=== PATIENT | male | born 1995 | race Caucasian/White ===

== ENCOUNTER 2016-11-07 05:06 | Inpatient (IN) | payer MEDICAID ==
[2016-11-07] VITALS (39 sets, daily range): BP systolic 86–134; BP diastolic 51–92
[~2016-11-07] VITALS: Ht 182.9 cm; Wt 105.7 kg
[~2016-11-07 05:06] MED LIST: CEPH-569 PO; HYDR1TAB PO; NO MEDS
--- NOTE | 2016-11-07 05:06 | NUR ---
TO BED 3 BIB PARAMEDICS C/O ALTERED, POSSIBLE OVERDOSE. PT WAS GIVEN NARCAN 4MG IVP BY EMS AIRDOX FITTER. RECEIVED PT SOMNOLENT, AROUSABLE TO PAINFUL STIMULI. RHONCHI HEARD BILATERALLY ON AUSCULTATION. PLACE PT ON CARDIAC MONITORING, CONTINUOUS POX, O2@15L/NONREBREATHER MASK. PT ADMITS TO TAKING 1 TAB OF XANAX. DANI MD AT BEDSIDE TO GIOVANNA PT.
--- NOTE | 2016-11-07 05:18 | NUR ---
DANI RUTH AT BEDSIDE TO RE-EVAL PT.
[2016-11-07 05:41] LABS: BASOPHILS # (AUTO) 0.1 /CMM (0.0-0.2); BASOPHILS % (AUTO) 0.4 % (0.0-2.0); EOSINOPHILS # (AUTO) 0.2 /CMM (0.0-0.7); EOSINOPHILS % (AUTO) 1.1 % (0.0-6.0); HEMATOCRIT 49 % (39-51); HEMOGLOBIN 16.2 g/dL (13.5-17.5); LYMPHOCYTES # (AUTO) 2.7 /CMM (0.8-4.8); LYMPHOCYTES % (AUTO) 19.1 % (20.0-44.0); MEAN CORPUSCULAR HEMOGLOBIN 30 PG (26.0-33.0); MEAN CORPUSCULAR HGB CONC 33 g/dl (31.0-36.0); MEAN CORPUSCULAR VOLUME 90 fL (80-96); MONOCYTES # (AUTO) 0.6 /CMM (0.1-1.30); MONOCYTES % (AUTO) 3.8 % (2.0-12.0); NEUTROPHILS # (AUTO) 10.9 /CMM (1.8-8.9); NEUTROPHILS % (AUTO) 75.6 % (43.0-81.0); PLATELET COUNT (AUTO) 223 /CMM (150-450); RDW COEFFICIENT OF VARIATION 12.5 (11.5-15.0); RED BLOOD CELL COUNT(AUTO) 5.39 MIL/uL (4.5-6.0); WHITE BLOOD COUNT (AUTO) 14.4 K/uL (4.3-11.0)
--- NOTE | 2016-11-07 05:42 | NUR ---
PT O2 SAT 88% ON NONREBREATHER MASK. ER MADE AWARE.
--- NOTE | 2016-11-07 05:47 | NUR ---
PT RESP RATE AT 40/MIN ER MD MADE AWARE. ER MD AT BEDSIDE TO RE-EVAL PT WITH ORDERS RECEIVED. RT PAGED PER ER MD ORDER.
[2016-11-07 06:18] LABS: INR 0.97 (0.87-1.13); PROTHROMBIN TIME 10.4 SECS (9.5-12.7)
[2016-11-07 06:19] LABS: CALCIUM, SERUM 8.1 mg/dL (8.5-10.1); CREATININE 1.2 mg/dL (0.6-1.3); POTASSIUM 4.2 mmol/L (3.5-5.1)
--- NOTE | 2016-11-07 06:20 | NUR ---
NOW PT RESP RATE 48-52/MIN, ER MD AWARE WITH ORDERS TO PREP PT FOR INTUBATION. RT AT BEDSIDE.
[2016-11-07 06:21] LABS: ALBUMIN 3.9 g/dL (3.4-5.0); BILIRUBIN,DIRECT 0.1 mg/dL (0.0-0.2); BILIRUBIN,TOTAL 0.3 mg/dL (0.2-1.0); TOTAL PROTEIN, SERUM 7.4 g/dL (6.4-8.2)
[2016-11-07 06:25] LABS: SALICYLATE 1.2 mg/dL (2.8-20.0)
--- NOTE | 2016-11-07 06:29 | NUR ---
RT PLACE PT ON VENT, AC-20, TV-500, FIO2-90%, PEEP-5.
--- NOTE | 2016-11-07 06:29 | NUR ---
PT INTUBATED BY ER WITH ET-TUBE 8.0, 24CM AT THE LIP LINE, (+) COLOR CHANGE ON THE CO2 DETECTOR WITH BILATERAL EQUAL BREATH SOUNDS.
--- NOTE | 2016-11-07 06:30 | NUR ---
ETT PULLED BACK 1 CM. ETT 23 @ THE LIP.
--- NOTE | 2016-11-07 06:30 | NUR ---
PT REC'D ON NRB 15L. RESP DISTRESS AND SOB NOTED. PT INTUBATED ETT SIZE 8, 24 @ THE LIP. CLEAR BILATERAL B/S NOTED. PT PLACED ON [facility] VENT ON NOTED SETTINGS PER DR DUEÑAS. DINING ROOM SERVER CUFF PRESSURE NOTED. VENT PLUGGED INTO RED OUTLET. ALARMS ARE SET AND AUDIBLE. AMBU BAG BEDSIDE WILL CONTINUE TO MONITOR. Addendum: 11/07/16 at 0700 by AMAURY SHAW RT Amended: Links added.
--- NOTE | 2016-11-07 06:37 | NUR ---
POST INTUBATION CXR DONE.
--- NOTE | 2016-11-07 06:53 | NUR ---
PT ASSIGNED TO ICU 257
--- NOTE | 2016-11-07 07:11 | NUR ---
REPORT GIVEN TO ALBINO MONTGOMERY.
[2016-11-07 07:32] LABS: TROPONIN I 0.037 ng/mL (0.00-0.056)
--- NOTE | 2016-11-07 07:38 | NUR ---
REPORT CALLED TO CABLE OPERATORNICHOLAS SONG. WILL TRANSPORT PT VIA ACLS PROTOCOL.
--- NOTE | 2016-11-07 07:54 | NUR ---
PATIENT TRANSFERRED TO ICU VIA ACLS PROTOCOL, WITH EMT, RN, AND RT. DUNCAN PETERSON TO PROVIDE YURIY.
--- NOTE | 2016-11-07 08:00 | NUR ---
SPAR MACHINE OPERATOR HELPER; ADMIT RECEIVED PT VENTED VIA ETT, VIA GURNEY FROM ER WITH ACLS. PT TRANSFER TO ICU BED PLACED ON VENTILATOR AND MANAGEMENT EXPERT. MANAGEMENT EXPERT SHOWING SINUS TACHYCARDIA. NOTED LARGE AMOUNT OF BRIGHT RED FROTHY SPUTUM COMING OUT OF ETT. ORAL CARE AND SUCTIONING DONE. PT ON DIPRIVAN DRIP AT 35MCG/KG/MIN STARTED IN ER. PT APPEARS TO BE AWAKE AND REACHING FOR ETT WILL INCREASE SEDATION FOR PT SAFETY. DOMINGO SOFT WRIST RESTRAINS ON. ORDERED. SULLIVAN CATH INTACT DRAINING TO GRAVITY CLEAR YELLOW URINE. NG TUBE TO RIGHT NARE INTACT POSITIVE FOR AUSCULTATION AND ASPIRATION. WILL REVIEW ORDERS.
[2016-11-07 08:08] LABS: APPEARANCE,URINE CLEAR (CLEAR); BILIRUBIN,URINE NEGATIVE (NEGATIVE); BLOOD, URINE NEGATIVE Ery/uL (NEGATIVE); COLOR,URINE YELLOW (YELLOW); KETONES,URINE NEGATIVE (NEGATIVE); LEUKOCYTE ESTERASE ,URINE NEGATIVE (NEGATIVE); NITRITE, URINE NEGATIVE (NEGATIVE); PROTEIN,URINE NEGATIVE (NEGATIVE); UGLUCOSE NEGATIVE (NEGATIVE); UROBILINOGEN,URINE 0.2 EU/dL (0.2)
[2016-11-07 08:38] LABS: ABG BASE EXCESS -2.7 mmol/L; ABG OXYGEN SATURATION 97.9 % (92.0-98.5); ABG PH 7.387 (7.350-7.450); ABG PO2 114.2 mmHg (75.0-100.0); AaDO2 489.6 mmHg; COHb 0.5 % (0.5-1.5); MetHb 0.9 % (0.0-1.5); O2Hb 96.5 % (94.0-97.0); SITE, ABG Right Radial; VENT MODE, BG AC 20 500 90% +5
--- NOTE | 2016-11-07 10:30 | NUR ---
SOLE LEVELING MACHINE OPERATOR; PRIMARY DR. CECELIA MADRID AT BEDSIDE UPDATE WAS GIVEN. DISCUSSED REGARDING LOW GRADE FEVERS AND LOW B/P. NEW ORDERS GIVEN.
--- NOTE | 2016-11-07 19:30 | NUR ---
ELECTRICAL AUTOMATION ENGINEER RCD PT W/ DX OD; PT SEDATED ON DIPRIVAN AT 40 MCG/KG/MIN FOR PT SAFETY BL SOFT WRSIT RESTRAINTS IN PLACE; PT NOTED TO WAKE UP DURING ADLS. NSR/ST ON MONITOR. INTUBATED 8.0 @ 23 W/VENT SETTINGS AC 20 500 65% 5. ALBERTO PICC PATENT AND W/GOOD BLOOD RETURN. HOB ELEVATED. BED LOCKED AND IN LOW POSITION.
[2016-11-08] VITALS (59 sets, daily range): BP systolic 103–137; BP diastolic 53–98
--- NOTE | 2016-11-08 00:35 | NUR ---
MACHINE SPECIALIST TEMP 100; TYLENOL GIVEN AND INITIATED COOLING MEASURES. CONTINUE TO MONITOR.
[2016-11-08 04:45] LABS: BASOPHILS # (AUTO) 0.1 /CMM (0.0-0.2); BASOPHILS % (AUTO) 0.9 % (0.0-2.0); EOSINOPHILS # (AUTO) 0.2 /CMM (0.0-0.7); EOSINOPHILS % (AUTO) 1.9 % (0.0-6.0); HEMATOCRIT 42 % (39-51); HEMOGLOBIN 14.7 g/dL (13.5-17.5); LYMPHOCYTES # (AUTO) 1.6 /CMM (0.8-4.8); LYMPHOCYTES % (AUTO) 13.7 % (20.0-44.0); MEAN CORPUSCULAR HEMOGLOBIN 31 PG (26.0-33.0); MEAN CORPUSCULAR HGB CONC 35 g/dl (31.0-36.0); MEAN CORPUSCULAR VOLUME 90 fL (80-96); MONOCYTES # (AUTO) 0.9 /CMM (0.1-1.30); MONOCYTES % (AUTO) 8.1 % (2.0-12.0); NEUTROPHILS # (AUTO) 8.8 /CMM (1.8-8.9); NEUTROPHILS % (AUTO) 75.4 % (43.0-81.0); PLATELET COUNT (AUTO) 153 /CMM (150-450); RDW COEFFICIENT OF VARIATION 12.4 (11.5-15.0); WHITE BLOOD COUNT (AUTO) 11.6 K/uL (4.3-11.0)
[2016-11-08 05:11] LABS: CHOLESTEROL 133 mg/dL (<200); HDL CHOLESTEROL 36 mg/dL (40-60); LDL 63 mg/dL (0-99); THYROID STIMULATING HORMONE 0.869 uIU/mL (0.358-3.74); TRIGLYCERIDES 810 mg/dL (30-150)
[2016-11-08 05:13] LABS: B-TYPE NATRIURETIC PEPTIDE 91 PG/ML (0-125); CALCIUM, SERUM 7.8 mg/dL (8.5-10.1); CARBON DIOXIDE 30 mmol/L (21-32); CHLORIDE 105 mmol/L (98-107); GLUCOSE 110 mg/dL (74-106); PHOSPHORUS 3.2 mg/dL (2.5-4.9); POTASSIUM 3.6 mmol/L (3.5-5.1); SODIUM SERUM 140 mmol/L (136-145); UREA NITROGEN, BLOOD 7 mg/dL (7-18)
[2016-11-08 05:21] LABS: TROPONIN I < 0.017 ng/mL (0.00-0.056)
--- NOTE | 2016-11-08 06:45 | NUR ---
WET END OPERATOR PT REMAINED ON DIPRIVAN AT 40 MCG/KG/MIN AND BL SOFT WRIST RESTRAINTS PT EASILY WAKES UP DURING ADLS. RESTRAINTS WILL REMAIN ON FOR PT SAFETY. CONTINUE TO MONITOR.
--- NOTE | 2016-11-08 08:00 | NUR ---
HYDROTECHNICAL SPECIALIST; ASSESSMENT RECEIVED PT VENTED VIA ETT. SEE FLOW SHEET FOR VET SETTINGS. PT SEDATED ON DIPRIVAN DRIP AT 40MCG/KG/MIN INFUSING INTO RIGHT UPPER ARM PICC LINE. NG TUBE TO RIGHT NARE INTACT POSITIVE FOR AUSCULTATION AND ASPIRATION. SULLIVAN CATH INTACT DRAINING TO GRAVITY CLEAR YELLOW URINE. DOMINGO SOFT WRIST RESTRAINS ON, FOR PT SAFETY. WILL START TITRATION OF DIPRIVAN FOR SEDATION VACATION.
--- NOTE | 2016-11-08 08:16 | NUR ---
PT REC'D INTUBATED VIA 8.0 AT 23CM AT THE MIDDLE OF THE LIP. B/S BILAT. EQUAL AND CLEAR. SOME MILD CRACKLES AT THE RIGHT LOWER LOBE. MILD AMT OF THICK YELLOW/BLOOD-TINGED SECRETIONS SX. VENT SETTINGS PER MD REQUEST. VENT ALARMS SET AND AUDIBLE PER POLICY. AMBU-BAG AT HOB. Addendum: 11/08/16 at 0834 by CHANELLE EDGE RT Amended: Links added.
--- NOTE | 2016-11-08 08:30 | NUR ---
DOOR CUTTER; SEDATION VACATION DIPRIVAN NOW DOWN TO 30MCG/KG/MIN. PT IS AWAKE AND ABLE TO FOLLOW COMMANDS. PT REACHING FOR ETT. WILL PLACE DIPRIVAN BACK TO 40MCG FOR SEDATION AND PT SAFETY.
--- NOTE | 2016-11-08 09:30 | NUR ---
NARROW FABRICS WEAVER; MD PRIMARY DR. RAI AT BEDSIDE UPDATE WAS GIVEN. DISCUSSED REGARDING ELEVATED TRIGLYCERIDE LEVELS AND PTS NEURO STATUS WITH SEDATION VACATION. NEW ORDERS GIVEN TO START VERSED DRIP AND D/C DIPRIVAN DRIP AND SWITCH TO VERSED DRIP. NEW ORDERS ACKNOWLEDGE AND WILL F/U WITH PHARMACY
--- NOTE | 2016-11-08 10:56 | NUR ---
SCHOOL LIBRARY MEDIA PROGRAM DIRECTOR; SEDATION VERSED DRIP STARTED AT 4MG/HR ORDERED. WILL TITRATE DIPRIVAN OFF ONCE PT IS SEDATED. DOMINGO WRIST RESTRAINS REMAIN ON FOR PT SAFETY.
[2016-11-08 11:01] LABS: ABG BASE EXCESS 3.7 mmol/L; ABG PCO2 46.4 mmHg (35.0-45.0); ABG PH 7.414 (7.350-7.450); ABG PO2 127.3 mmHg (75.0-100.0); AaDO2 104.5 mmHg; COHb 0.3 % (0.5-1.5); O2Hb 96.7 % (94.0-97.0); PEEP,BG 5 cm H2O; SITE, ABG Right Radial; VT, ABG 500 mL
--- NOTE | 2016-11-08 14:12 | NUR ---
ON VERSED 7 MG HR PT IS SITTING UP, PRESSURE LIMITING VENT AND TRYING TO SELF EXTUBATE. WRITING NOTES THAT HE WANTS TUBE OUT. SIGNIF PATHOLOGY ON CXR. UNABLE TO FULLY STOP PROPOFOL (TRIG >800) D/T AGITATION. RECEIVING MORPHINE ORDERED. D/W DR SADLER-INCREASES IN VERSED ORDERED
--- NOTE | 2016-11-08 15:00 | NUR ---
CITRUS PICKER; SEDATION PT NOW ON VERSED 14MG/HR MAX DOSE. PT IS STILL AWAKE AND SITTING UP IN BED. DOMINGO WRIST RESTRAINS SECURED. PT IS AT TIMES IS COOPERATIVE AND ABLE TO WRITE DOWN NEEDS. WILL CONTINUE TO MONITOR CLOSELY.
--- NOTE | 2016-11-08 21:00 | NUR ---
STATION WORKER PT AWAKE AND AGITATED AT THIS TIME; CONSTANTLY REACHING FOR ET TUBE/ NG TUBE. PT WANTING NG TUBE AND SULLIVAN CATHETER REMOVED. PT ALERT ENOUGH TO MAKE NEEDS KNOWN DESPITE BEING ON VERSED 14 MG/HR. RCD ORDER FROM TO REMOVE NG TUBE AND SULLIVAN CATHETER AT THIS TIME. NG TUBE REMOVED. PT TOLERATED WELL. PT AGREED TO KEEP SULLIVAN CATHETER IN PLACE AT THIS TIME. CONTINUE TO MONITOR.
[2016-11-09] VITALS (37 sets, daily range): BP systolic 98–155; BP diastolic 37–87
--- NOTE | 2016-11-09 00:50 | NUR ---
ORACLE R12 DEVELOPER PT AWAKE; SITTING UP IN BED; ATTEMPTING TO REACH ET TUBE. C/O THROAT PAIN. PT ABLE TO SIT UP IN BED DESPITE BEING ON VERSED AT 14 MG/HR. PT ATTEMPTING TO COUGH OUT ET TUBE. CONTINUE TO MONITOR.
[2016-11-09 04:38] LABS: BASOPHILS # (AUTO) 0.1 /CMM (0.0-0.2); BASOPHILS % (AUTO) 0.8 % (0.0-2.0); EOSINOPHILS # (AUTO) 0.4 /CMM (0.0-0.7); EOSINOPHILS % (AUTO) 4.4 % (0.0-6.0); HEMATOCRIT 38 % (39-51); HEMOGLOBIN 13.1 g/dL (13.5-17.5); LYMPHOCYTES # (AUTO) 1.5 /CMM (0.8-4.8); LYMPHOCYTES % (AUTO) 15.1 % (20.0-44.0); MEAN CORPUSCULAR HEMOGLOBIN 31 PG (26.0-33.0); MEAN CORPUSCULAR HGB CONC 35 g/dl (31.0-36.0); MEAN CORPUSCULAR VOLUME 88 fL (80-96); MONOCYTES # (AUTO) 1.1 /CMM (0.1-1.30); MONOCYTES % (AUTO) 10.9 % (2.0-12.0); NEUTROPHILS # (AUTO) 6.9 /CMM (1.8-8.9); NEUTROPHILS % (AUTO) 68.8 % (43.0-81.0); PLATELET COUNT (AUTO) 145 /CMM (150-450); RDW COEFFICIENT OF VARIATION 12.4 (11.5-15.0); RED BLOOD CELL COUNT(AUTO) 4.27 MIL/uL (4.5-6.0)
[2016-11-09 04:58] LABS: CALCIUM, SERUM 8.1 mg/dL (8.5-10.1); CREATININE 0.7 mg/dL (0.6-1.3); MAGNESIUM 1.9 mg/dL (1.8-2.4); POTASSIUM 3.3 mmol/L (3.5-5.1)
--- NOTE | 2016-11-09 06:15 | NUR ---
MECHANICAL MANUFACTURING TECHNICIAN PT RELEASED LEFT HAND RESTRAINT. PLACED SULLIVAN BAG ON BED; DISCONNECTED SELF FROM VENT. PT UPSET AND WANTS ET TUBE REMOVED. REEDUCATED ON THE NEED TO REMAIN INTUBATED UNTIL ALL RESULTS HAVE RETURNED AND PT IS SEEN BY MD. SULLIVAN CATH REMAINS IN PLACE PT IS NON COMPLIANT.
--- NOTE | 2016-11-09 06:22 | NUR ---
BODY CORPORATE MANAGER PT DISCONNECTED SELF FROM VENT; PT REMAINS UPSET WANTS ET TUBE OUT.
--- NOTE | 2016-11-09 07:15 | NUR ---
TECHNICAL PUBLICATIONS WRITER NOTES RECEIVED PATIENT AWAKE ALERT X 3 , NOT IN ACUTE DISTRESS , DENIES SOB AND DISCOMFORT AT THIS TIME , ETT OF 8.5/ IN PLACE , TOLERATING CURRENT VENTILATOR SETTINGS WITH SPO2 OF 100% , SR 99 ON BEDSIDE MONITOR , CVP READING OF 10 , FC DRAINING WELL VIA GRAVITY WITH CLEAR YELLOW URINE , BILATERAL SOFT WRIST RESTRAINTS IN PLACE , ALBERTO PICC LINE WITH NS @ 75ML/HR , VERSED 14MG/HR INFUSING WELL , R AC AND L AC # 20 PATENT AND INTACT SL , ALL NEEDS ATTENDED , BED ON LOW AND LOCKED POSITION , SIDE RAILS X3 ,CALL LIGHT WITHIN REACH , HOB @ 35 , WILL CONTINUE TO MONITOR .
--- NOTE | 2016-11-09 08:48 | NUR ---
PLANT MAINTENANCE MANAGER NOTES PT PLACED ON CPAP MODE ORDERED , PT OFF SEDATION , AWAKE ALERT X 3 , ON BILATERAL SOFT WRIST RESTRAINS , WILL CONTINUE TO MONITOR
[2016-11-09 09:11] LABS: ABG BASE EXCESS 1.2 mmol/L; ABG OXYGEN SATURATION 96.8 % (92.0-98.5); ABG PH 7.417 (7.350-7.450); ABG PO2 97.4 mmHg (75.0-100.0); AaDO2 68.3 mmHg; COHb 0.6 % (0.5-1.5); MetHb 0.9 % (0.0-1.5); O2Hb 95.3 % (94.0-97.0); PEEP,BG 5 cm H2O; SITE, ABG Right Radial; VENT MODE, BG CPAP / PS 12
--- NOTE | 2016-11-09 09:30 | NUR ---
CHEMISTRY TECHNOLOGIST NOTES NOTIFIED DR MEDEIROS REGARDING ABG RESULT ON CPAP MODE SETTINGS ORDERED , ORDERED EXTUBATION , WILL CONTINUE TO MONITOR
--- NOTE | 2016-11-09 09:35 | NUR ---
RT PT EXTUBATED PER DR. MEDEIROS ORDERS. PT PLACED ON 2L NASAL CANNULA. TOLERATING WELL WITH NO SOB OR RESPIRATORY DISTRESS. WILL CONTINUE TO MONITOR. Addendum: 11/09/16 at 0936 by ROMARIO KUMAR RT Amended: Links added.
--- NOTE | 2016-11-09 09:36 | NUR ---
TOMAHAWK WEAPON SYSTEM OPERATOR NOTES SUCTION PATIENT PRIOR TO EXTUBATION NOTED WITH THICK SECRETIONS , TOLERATED EXTUBATION , PLACED PT ON 2LPM NC WITH SPO2 OF 98% WITH NO S/S OF DISTRESS , MD ORDERED REGULAR DIET , BILATERAL SOFT WRIST RESTRAINTS , SULLIVAN CATHETER , CVP MONITORING DISCONTINUED . WILL CONTINUE TO MONITOR
--- NOTE | 2016-11-09 09:50 | NUR ---
CROSS COUNTRY COACH NOTES SEEN AND EVALUATED BY DR MEDEIROS , NOTIFIED PT HAS LOW GRADE TEMP OF 100F , AWAKE ALERT X3 ,VERSED DRIP OFF , DISCUSSED LABS , MD AWARE
--- NOTE | 2016-11-09 10:00 | NUR ---
FLIGHT CONTROL TOWER OPERATOR NOTES PT ABLE TO URINATE S/P SULLIVAN CATHETER REMOVAL , NOTED WITH 300ML CLEAR YELLOW URINE , WILL CONTINUE TO MONITOR
--- NOTE | 2016-11-09 17:00 | NUR ---
.NET PROGRAMMER NOTES CALLED NURSING FISCAL OFFICER NOTIFIED THAT PICC LINE FOR PT 257 - 1 NEEDS TO BE REPOSITIONED PER CHEST XRAY , PER FISCAL OFFICER HE WILL CALL [facility] .
--- NOTE | 2016-11-09 18:00 | NUR ---
LOAN REVIEW MANAGER NOTES PT IS REQUESTING MORPHINE IVP INSTEAD OF NORCO 5-325MG , NOTIFIED DR RAI , PER DR RAI CONTINUE NORCO 5-325MG Q4 PRN , EXPLAINED TO THE PATIENT THE RISK OF TAKING MORPHINE S/P EXTUBATION , PT VERBALIZED UNDERSTANDING AND AGREED TAKING NORCO 5-325 FOR PAIN .
--- NOTE | 2016-11-09 19:30 | NUR ---
SHARPLES MACHINE OPERATOR RCD PT DX OVERDOSE; PT IS A/O x4; PT REQUESTING FOR PAIN MEDICATION. REMINDED PT HE RECEIVED NORCO ONE HOUR AGO. PT ST ON MONITOR. O2 2L VIA NC NO IMMEDIATE SIGNS OF RESP DIST NOTED. HOB ELEVATED. BED LOCKED AND IN LOW POSITION. BED ALARM ON; EDUCATED PT TO CALL FOR ASSISTANCE AND NOT GET OUT OF BED BY HIMSELF. PT VERBALIZES UNDERSTANDING. CONTINUE TO MONITOR.
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
[2016-11-10] VITALS (18 sets, daily range): BP systolic 115–151; BP diastolic 51–97
--- NOTE | 2016-11-10 02:43 | NUR ---
CITRIX ADMINISTRATOR PT C/O HEADACHE 08/31; MEDICATED WITH NORCO PRN. CONTINUE TO MONITOR.
[2016-11-10 04:39] LABS: BASOPHILS % (AUTO) 0.1 % (0.0-2.0); EOSINOPHILS # (AUTO) 0.5 /CMM (0.0-0.7); HEMATOCRIT 41 % (39-51); HEMOGLOBIN 13.9 g/dL (13.5-17.5); LYMPHOCYTES % (AUTO) 26.1 % (20.0-44.0); MEAN CORPUSCULAR HEMOGLOBIN 31 PG (26.0-33.0); MEAN CORPUSCULAR HGB CONC 34 g/dl (31.0-36.0); MEAN CORPUSCULAR VOLUME 90 fL (80-96); MONOCYTES # (AUTO) 0.8 /CMM (0.1-1.30); MONOCYTES % (AUTO) 9.9 % (2.0-12.0); NEUTROPHILS # (AUTO) 4.4 /CMM (1.8-8.9); NEUTROPHILS % (AUTO) 56.9 % (43.0-81.0); PLATELET COUNT (AUTO) 215 /CMM (150-450); RDW COEFFICIENT OF VARIATION 12.1 (11.5-15.0); RED BLOOD CELL COUNT(AUTO) 4.51 MIL/uL (4.5-6.0); WHITE BLOOD COUNT (AUTO) 7.7 K/uL (4.3-11.0)
[2016-11-10 04:59] LABS: CALCIUM, SERUM 8.6 mg/dL (8.5-10.1); CREATININE 0.8 mg/dL (0.6-1.3); PHOSPHORUS 3.9 mg/dL (2.5-4.9); POTASSIUM 3.6 mmol/L (3.5-5.1)
--- NOTE | 2016-11-10 06:00 | NUR ---
RN CIRCULATING PT GIVEN LOZENGE FOR THROAT PAIN. PT NOTED TO BE COUGHING UP BLOOD TINGED MUCUS.
--- NOTE | 2016-11-10 07:15 | NUR ---
CHANNEL SUPERVISOR NOTES RECEIVED PATIENT AOX4 , NOT IN ACUTE DISTRESS , DENIES SOB AND DISCOMFORT AT THIS TIME SPO2 OF 98% VIA 2LPM NC , SR 85 ON BEDSIDE MONITOR , ALBERTO PICC LINE WITH NS @ 75ML/HR INFUSING WELL , ALL NEEDS ATTENDED , BED ON LOW AND LOCKED POSITION , SIDE RAILS X2, CALL LIGHT WITHIN REACH , HOB @ 35 WILL CONTINUE TO MONITOR
--- NOTE | 2016-11-10 09:00 | NUR ---
BUSINESS CENTER REPRESENTATIVE NOTES LOVENOX HELD PT HAVING BLOODY SPUTUM , WILL CONTINUE TO MONITOR
--- NOTE | 2016-11-10 09:08 | NUR ---
IMPROVEMENT RN NOTES SEEN AND EVALUATED BY DR MEDEIROS , NOTIFIED PT STABLE AT THIS TIME , NO S/S OF DISTRESS , SPO2 OF 98% VIA RA , AFEBRILE , COUGHING OUT THICK BLOODY SECRETIONS , MD AWARE , OK TO DOWN GRADE TO MEDICAL SURGICAL FLOOR , OK TO TAKE SHOWER .
--- NOTE | 2016-11-10 14:23 | NUR ---
LOG PREPARER NOTES F/U WITH TYE SHAFFER IF HE WANTS TO ORDER PSYCHIATRIC CONSULT PT HAS HISTORY OF PTSD AND PT IS SELF MEDICATING , PER MD OK FOR PSYCH CONSULT , CALLED [employer] AND FAXED FACE SHEET FOR PSYCH CONSULT
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
--- NOTE | 2016-11-10 16:15 | NUR ---
PHARMACY INFORMATICIST NOTES PT TRANSFERRED TO ROOM 114-2 , STABLE AT THIS TIME , DENIES SOB , SUICIDAL AND HOMICIDAL IDEATION , SPO2 OF 98% VIA RA , AFEBRILE , ALBERTO PICC LINE PATENT AND INTACT , BELONGING LIST CHECK , REPORT GIVEN TO CHUCK FOR CONTINUITY OF CARE
--- NOTE | 2016-11-10 16:15 | NUR ---
MS RN NOTE RECEIVED PATIENT FROM ICU ALERT, ORIENTEDX3 . All needs attended , FAMILY AT BEDSIDE . VS TAKEN UNIT ORIENTATION DONE. BELONGING CHECK, RT UPPER ARM PICC LINE IN PLACE , ALL NEEDS ATTENDED PLAN OF CARE DISCUSSED WITH PATIENT, WILL CONT TO MONITOR CLOSELY,CALL LIGHT WITHIN REACH BED IN LOWEST AND LOCKED POSITION
--- NOTE | 2016-11-10 19:00 | NUR ---
MS RN NOTE ALL NEEDS ATTENDED, NOT IN ACUTE DISTRESS , FRIEND AT BEDSIDE
--- NOTE | 2016-11-10 20:30 | NUR ---
RN NOTES RECEIVED PT AWAKE ON BED, A/O X4. ON ROOM AIR SATURATING WELL, NO S/S OF RESP DISTRESS. PT IS CONTINENT, AMBULATES TO THE BATHROOM NEEDED. RIGHT UPPER ARM PICC FLUSHED AND PATENT, NO S/S OF INFILTRATION/INFECTION, DRESSING CDI. BED LOW AND LOCKED, SIDERAILS UP, CALL LIGHT WITHIN REACH. WILL MONITOR
[2016-11-11 04:00] VITALS: BP 125/55
--- NOTE | 2016-11-11 06:30 | NUR ---
RN NOTES PT REMAINS STABLE OF THE MOMENT. ALL DUE MEDS GIVEN, AM CARE PROVIDED. WILL ENDORSE CONTINUITY OF CARE TO AM RN
--- NOTE | 2016-11-11 07:05 | NUR ---
MS RN NOTE: RECEIVED PT AWAKE IN BED, A&OX4, DENIES PAIN. ON RA, RESPIRATIONS EVEN AND UNLABORED WITH NO SOB NOTED. ALBERTO PICC LINE PATENT AND INTACT. BED LOW, LOCKED, X2 SIDERAILS UP WITH CALL LIGHT WITHIN REACH. WILL CONT TO MONITOR.
[2016-11-11 08:00] VITALS: BP 128/83
[2016-11-11 16:00] VITALS: BP 137/87
[2016-11-11 16:02] VITALS: BP 137/87
--- NOTE | 2016-11-11 16:10 | NUR ---
picc line d/c on right upper arm with tip intact,no bleeding.discharge instructions given with prescription for po antibiotic.
--- NOTE | 2016-11-11 17:00 | NUR ---
MS RN NOTE: PATIENT DISCHARGED BACK HOME IN STABLE CONDITION. VS: 97.9 TEMP, 88 HR, 20 RR, 96% O2 SAT, 137/87 BP. D/C FORMS AND BELONGINGS LIST SIGNED. BELONGINGS RETURNED. ORDERS CARRIED OUT. PT LEFT THE UNIT AMBULATORY ACCOMPANIED BY A BOOM WORKER TO THE LOBBY FOR TEMPLATE INSPECTOR AT 1700.
== END 2016-11-11 17:05 | disposition home or self-care (01) | DRG 812 ==
LOC: ER 05:09 → ICU 07:14 → MEDSG1 11-10 16:13
PROC: 0BH17EZ Insertion of Endotracheal Airway into Trachea, Via Natural or Artificial Opening (ICD-10-PCS; principal; 2016-11-07)
PROC: 05HM33Z Insertion of Infusion Device into Right Internal Jugular Vein, Percutaneous Approach (ICD-10-PCS; principal; 2016-11-07)
PROC: B543ZZA Ultrasonography of Right Jugular Veins, Guidance (ICD-10-PCS; principal; 2016-11-07)
PROC: 5A1945Z Respiratory Ventilation, 24-96 Consecutive Hours (ICD-10-PCS; principal; 2016-11-07)
DX: T40.2X1A Poisoning by other opioids, accidental (unintentional), initial encounter (principal); J96.01 Acute respiratory failure with hypoxia; I21.4 Non-ST elevation (NSTEMI) myocardial infarction; J69.0 Pneumonitis due to inhalation of food and vomit; G92 Toxic encephalopathy; T42.4X1A Poisoning by benzodiazepines, accidental (unintentional), initial encounter; T42.6X1A Poisoning by other antiepileptic and sedative-hypnotic drugs, accidental (unintentional), initial encounter; E78.1 Pure hyperglyceridemia; F43.10 Post-traumatic stress disorder, unspecified; F19.10 Other psychoactive substance abuse, uncomplicated; T39.1X1A Poisoning by 4-Aminophenol derivatives, accidental (unintentional), initial encounter; F11.10 Opioid abuse, uncomplicated; F14.10 Cocaine abuse, uncomplicated; F13.10 Sedative, hypnotic or anxiolytic abuse, uncomplicated; Y92.009 Unspecified place in unspecified non-institutional (private) residence as the place of occurrence of the external cause
CPT/HCPCS: 31720; 36415; 36600; 71010-TC; 80048-TC; 80061-TC; 80076-TC; 80305; 81000-TC; 82140-TC; 82803-TC; 82962-TC; 83735-TC; 83880; 84100-TC; 84443-TC; 84484-TC; 85025-TC; 85730-TC; 87040-TC; 87070-TC; 87081-TC; 93307-TC; 94003-TC; 94799-TC; A4606; A6402; G0480; J1650; J2250; J2270; J2310; J2543; J3490; J7030; J7040; J7050; J7060; Z7610

== ENCOUNTER 2016-12-17 02:56 | Emergency (ER) | payer MEDICAID ==
[~2016-12-17] VITALS: Ht 170.2 cm; Wt 95.3 kg
[2016-12-17] MEDS ORDERED: ALBUTEROL FS 2.5 MG/0.5 ML VIAL.NEB NEB ONE (03:00)
[2016-12-17] MEDS ORDERED: IPRATROPIUM NEB FS 0.5 MG/2.5 ML AMPUL.NEB NEB ONE (03:00)
--- NOTE | 2016-12-17 03:04 | NUR ---
MIRACLE MCMULLEN FROM HOME, PER BENEDICT "FOUND NON RESPONISVE, GAVE NARCAN IN FIELD PT BECAME RESPONISVE" LUNG FOX WHEEZING BILATERALLY RR 24 SAT 90%RA, SINUS TACH ON REGULATORY ASSOCIATE 118, PT A/O X 4, NO C/O PAIN AT THIS TIME
[2016-12-17] MEDS ORDERED: ALBUTEROL FS 2.5 MG/0.5 ML VIAL.NEB ONE (03:05)
[2016-12-17] MEDS ORDERED: IPRATROPIUM NEB FS 0.5 MG/2.5 ML AMPUL.NEB ONE (03:05)
--- NOTE | 2016-12-17 03:06 | NUR ---
RT BEDSIDE FOR BREATHING TX AT THIS TIME
[2016-12-17 03:31] LABS: BASOPHILS % (AUTO) 0.3 % (0.0-2.0); EOSINOPHILS # (AUTO) 0.1 /CMM (0.0-0.7); EOSINOPHILS % (AUTO) 0.7 % (0.0-6.0); HEMATOCRIT 49 % (39-51); HEMOGLOBIN 16.5 g/dL (13.5-17.5); LYMPHOCYTES % (AUTO) 14.8 % (20.0-44.0); MEAN CORPUSCULAR HEMOGLOBIN 30 PG (26.0-33.0); MEAN CORPUSCULAR HGB CONC 34 g/dl (31.0-36.0); MEAN CORPUSCULAR VOLUME 90 fL (80-96); MONOCYTES # (AUTO) 0.4 /CMM (0.1-1.30); MONOCYTES % (AUTO) 3.4 % (2.0-12.0); NEUTROPHILS # (AUTO) 10.8 /CMM (1.8-8.9); NEUTROPHILS % (AUTO) 80.8 % (43.0-81.0); PLATELET COUNT (AUTO) 216 /CMM (150-450); RDW COEFFICIENT OF VARIATION 12.7 (11.5-15.0); RED BLOOD CELL COUNT(AUTO) 5.46 MIL/uL (4.5-6.0); WHITE BLOOD COUNT (AUTO) 13.3 K/uL (4.3-11.0)
[2016-12-17 03:34] LABS: APPEARANCE,URINE CLEAR (CLEAR); BILIRUBIN,URINE NEGATIVE (NEGATIVE); BLOOD, URINE NEGATIVE Ery/uL (NEGATIVE); COLOR,URINE YELLOW (YELLOW); KETONES,URINE NEGATIVE (NEGATIVE); LEUKOCYTE ESTERASE ,URINE NEGATIVE (NEGATIVE); NITRITE, URINE NEGATIVE (NEGATIVE); PH,URINE 5.5 (5.0-8.0); PROTEIN,URINE NEGATIVE (NEGATIVE); UGLUCOSE NEGATIVE (NEGATIVE); UROBILINOGEN,URINE 0.2 EU/dL (0.2)
[2016-12-17 03:49] LABS: CALCIUM, SERUM 8.8 mg/dL (8.5-10.1); CARBON DIOXIDE 32 mmol/L (21-32); CHLORIDE 106 mmol/L (98-107); CREATININE 1.1 mg/dL (0.6-1.3); GLUCOSE 148 mg/dL (74-106); SODIUM SERUM 144 mmol/L (136-145); UREA NITROGEN, BLOOD 9 mg/dL (7-18)
[2016-12-17 03:55] LABS: ALANINE AMINOTRANSFERASE 75 U/L (12-78); ALBUMIN 4.1 g/dL (3.4-5.0); ALCOHOL, BLOOD < 3 mg/dL (0-0); ALKALINE PHOSPHATASE 152 U/L (46-116); ASPARTATE AMINOTRANSFERASE 31 U/L (15-37); BILIRUBIN,DIRECT 0.1 mg/dL (0.0-0.2); BILIRUBIN,TOTAL 0.2 mg/dL (0.2-1.0); TOTAL PROTEIN, SERUM 7.9 g/dL (6.4-8.2)
[2016-12-17 03:58] LABS: ACETAMINOPHEN 0 ug/ml (10-30); SALICYLATE 1.5 mg/dL (2.8-20.0)
--- NOTE | 2016-12-17 04:02 | NUR ---
PT SITTING UP IN BED AROUSED TO PHYSICAL STIMULI, MOTHER BEDSIDE, BREATHING LOUDLY WITH SYMMETRICAL CHEST RISE/FALL RR 32, OXYGEN SAT 97% WITH 4L VIA NASAL CANULA, SINUS TACH 125 HR ON WHEELCHAIR VAN OPERATOR FIRST RESPONDER, BP 175/85, SKIN WARM/DRY, UPDATED PT AND MOTHER ON PLAN OF CARE
--- NOTE | 2016-12-17 05:15 | NUR ---
PT SITTING HIGH FOWLERS IN BED, BREATHING LOUDLY/SYMMETRICAL CHEST RISE/FALL RR 32 SAT 98% 4L VIA NASAL CANULA, AROUSED EASILY TO VOICE, A/O X 4, CARDIAC MINITOR IN PLACE SINUS TACH 117, NO C/O PAIN, CONTINUE TO MONITOR
--- NOTE | 2016-12-17 07:04 | NUR ---
PT SLEEPING, BREATHING LOUDLY/AROUSED TO PHYSICAL STIMULI, SYMMETRICAL CHEST RISE/FALL, NO C/O PAIN, JAVA ANDROID DEVELOPER IN PLACE SINUS TACH 117 HR
--- NOTE | 2016-12-17 09:35 | NUR ---
Patient discharged to home in stable condition. Written and verbal after care instructions given. Patient verbalizes understanding of instruction.
--- NOTE | 2016-12-17 09:35 | NUR ---
IV removed. Catheter intact and site benign. Pressure and 4x4 applied to site. No bleeding noted.
[2016-12-17 09:45] VITALS: BP 142/90
== END 2016-12-17 09:45 | disposition home or self-care (01) ==
LOC: ER 03:01
DX: F11.10 Opioid abuse, uncomplicated (principal); F19.10 Other psychoactive substance abuse, uncomplicated; F12.10 Cannabis abuse, uncomplicated; J45.909 Unspecified asthma, uncomplicated; R79.89 Other specified abnormal findings of blood chemistry; Z88.8 Allergy status to other drugs, medicaments and biological substances
CPT/HCPCS: 36415; 71010-TC; 80048-TC; 80076-TC; 80305; 81000-TC; 82962-TC; 85025-TC; A4606; G0480; Z7610

== ENCOUNTER 2017-01-25 04:20 | Emergency (ER) | payer SELFPAY ==
[~2017-01-25] VITALS: Ht 182.9 cm; Wt 90.7 kg
[2017-01-25 04:20] VITALS: BP 0/0
--- NOTE | 2017-01-25 04:20 | NUR ---
PT TO ER BED 5. PT BIB RA IN FULL CARDIAC ARREST. PT FOUND UNRESPONSIVE BY FAMILY, CPR WAS INITIATED BY A FRIEND. WHEN PARAMEDICS ARRIVED THE PATIENT WAS IN ASYSTOLE. PARAMEDICS PLACED A MYNOR AIRWAY, I/O LINE AND GAVE NARCAN 2MG IV AND EPINEPHRINE X 4 IV. ON ARRIVAL TO ER BED 5, THE PATIENT IS IN ASYSTOLE. CPR IS CONTINUED VIA ACLS PROTOCOL. DR INGRAM AT BEDSIDE. RT AT BEDSIDE TO ASSISTED WITH INTUBATION. SEE CARDIO-PULMONARY RESUSCITATION REPORT.
[2017-01-25] MEDS ORDERED: DEXTROSE 50%-WATER 50 ML DISP.SYRIN IV ONE (04:22)
[2017-01-25] MEDS: NALOXONE HCL 0.4 MG/ML AMPUL IV ONE ×2 (04:22→04:31)
[2017-01-25] MEDS ORDERED: CALCIUM CHLORIDE 1,000 MG/10 ML DISP.SYRIN IV ONE (04:22)
[2017-01-25] MEDS ORDERED: EPINEPHRINE (1:10,000) SYRINGE 1 MG/10 ML DISP.SYRIN IVP ONE (04:22)
[2017-01-25] MEDS ORDERED: SODIUM BICARBONATE SYR 50 MEQ/50 ML DISP.SYRIN IV ONE (04:22)
--- NOTE | 2017-01-25 04:35 | NUR ---
TIME OF CALLED.
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
--- NOTE | 2017-01-25 05:02 | NUR ---
[facility] CALLED. CASE# [id number]
[2017-01-25] MEDS ORDERED: NALOXONE PREFILLED SYRINGE 2 MG/2 ML SYRINGE ONE (06:04)
--- NOTE | 2017-01-25 06:40 | NUR ---
[place] [facility] [place] [facility] [place]
== END 2017-01-25 07:05 | disposition expired ==
LOC: ER 04:21
DX: I46.9 Cardiac arrest, cause unspecified (principal); J45.909 Unspecified asthma, uncomplicated; Z88.8 Allergy status to other drugs, medicaments and biological substances
CPT/HCPCS: A4606; J0171; J2310; J3490; Z7610